=== PATIENT | female | born 1960 | race Two or more races ===

== ENCOUNTER 2023-11-25 14:42 | Emergency (ER) | payer OTHER ==
[~2023-11-25] VITALS: Ht 147.3 cm; Wt 59.0 kg
[~2023-11-25 14:42] MED LIST: AMBIEN10 MG; ASA81 MG PO; BUSPAR15 MG PO; DURICEF500 MG PO; FIORICET TABLET1 TAB; FLEXERIL10 MG; LYRICA200 MG PO; NORVASC10 MG; NORVASC5 MG PO; PRILOSEC; SOMA; TORADOL60 MG/2 ML; TRICOR145 MG; ZANTAC; ZOLOFT50 MG PO
[2023-11-25] MEDS ORDERED: LIPITOR20 MG PO (14:50)
[2023-11-25] MEDS ORDERED: CLONAZEPAM0.125 MG (14:51)
[2023-11-25] MEDS ORDERED: METOCLOPRAMIDE HCL 5 MG/5 ML BLIST.PACK PO STA (16:20)
[2023-11-25] MEDS ORDERED: ONDANSETRON HCL 2 MG/ML VIAL IV STA (16:26)
[2023-11-25] MEDS ORDERED: FAMOtidine 10 MG/ML (4ML VIAL) IV PUSH STA (16:26)
[2023-11-25] MEDS ORDERED: HYOSCYAMINE SULFATE 0.125 MG TAB.SUBL SL ONE (16:30)
[2023-11-25] MEDS ORDERED: METOCLOPRAMIDE HCL 5 MG/ML VIAL IM ONE (16:45)
== END 2023-11-25 19:00 | disposition home or self-care (01) ==
LOC: ER 14:42
DX: K29.70 Gastritis, unspecified, without bleeding (principal); Z88.8 Allergy status to other drugs, medicaments and biological substances; E11.9 Type 2 diabetes mellitus without complications
CPT/HCPCS: 96365; 96372; 99282; J2405; J2765; J3490

== ENCOUNTER 2025-07-30 20:31 | Inpatient (IN) | payer OTHER ==
[~2025-07-30] VITALS: Ht 121.9 cm; Wt 56.7 kg
[~2025-07-30 20:31] MED LIST changes: +CLONAZEPAM0.125 MG; +LIPITOR20 MG PO
[2025-07-30] MEDS ORDERED: JARDIANCE10 MG PO (21:18)
[2025-07-30] MEDS ORDERED: IPRATROPIUM BROMIDE 0.5 MG/2.5 ML AMPUL.NEB IH ONE (21:41)
[2025-07-30] MEDS ORDERED: CEFTRIAXONE SODIUM 1,000 MG VIAL ONE (21:58)
[2025-07-30] MEDS ORDERED: FAMOTIDINE/PF 20 MG/2 ML VIAL ONE (21:58)
[2025-07-30] MEDS ORDERED: METHYLPREDNISOLONE SOD SUCC 40 MG VIAL ONE (21:58)
[2025-07-30] MEDS ORDERED: CEFTRIAXONE SODIUM 1,000 MG VIAL IV ONE (22:00)
[2025-07-30] MEDS ORDERED: INSULIN REGULAR, HUMAN 1,000 UNIT/10 ML UNITS SUBCUTANEO ONE ×2 (22:00→23:30)
[2025-07-30] MEDS ORDERED: IPRATROPIUM BROMIDE 0.5 MG/2.5 ML AMPUL.NEB IH SCH (22:00)
[2025-07-30] MEDS ORDERED: MAGNESIUM SULFATE IN WATER 2 GM/50 ML PIGGYBAG IV ONE (22:00)
[2025-07-30] MEDS ORDERED: FAMOTIDINE/PF 20 MG/2 ML VIAL IV ONE (22:00)
[2025-07-30] MEDS ORDERED: METHYLPREDNISOLONE SOD SUCC 40 MG VIAL IV ONE (22:00)
[2025-07-30 22:04] LABS: BASO % 0.5 % (0.1-1.2); EOS # 0.04 (0.04-0.54); EOS % 0.3 % (0.7-7.0); LYMPH # 0.68 (1.18-3.74); LYMPH % 5.9 % (19.3-53.1); MEAN PLATELET VOLUME 11.60 fl (9.4-12.4); MONO # 0.22 (0.24-0.82); MONO % 1.9 % (4.7-12.5); NEUT # 10.19 (1.56-6.13); NEUT % 88.9 % (34.0-71.1); RED CELL DISTRIBUTION WIDTH 13.6 % (11.6-14.4)
[2025-07-30 22:28] LABS: COVID-19 AG NEGATIVE (NEGATIVE)
[2025-07-30 22:39] LABS: ALT/SGPT 19 U/L (12-78); AST/SGOT 21 U/L (15-37); BILIRUBIN TOTAL 0.63 mg/dL (0.3-1.2); BUN CREA RATIO 15 (7.0-25.0); CKMB < 1.0 NG/ML (0.5-3.6); CREATININE SERUM 1.02 mg/dL (0.55-1.02); GFR 54.73; GLOBULINA 4.0 G/DL (2.4-3.5); OSMOLALITY SERUM 299 MOSM/KG (275-295)
[2025-07-30 22:40] LABS: GLUCOSE FASTING 464 mg/dL (65-100)
[2025-07-30] MEDS ORDERED: ENOXAPARIN SODIUM 60 MG/0.6 ML SYRINGE SUBCUTANEO ONE ×2 (23:27→23:30)
[2025-07-30] MEDS ORDERED: LEVALBUTEROL HCL 1.25 MG/3 ML SOLUTION IH SCH (23:30)
[2025-07-30] MEDS ORDERED: LEVALBUTEROL HCL 1.25 MG/3 ML SOLUTION IH ONE (23:35)
[2025-07-31] MEDS ORDERED: LEVALBUTEROL HCL 1.25 MG/3 ML SOLUTION IH SCH (02:52)
[2025-07-31] MEDS ORDERED: IPRATROPIUM BROMIDE 0.5 MG/2.5 ML AMPUL.NEB IH SCH (02:52)
[2025-07-31] MEDS ORDERED: IPRATROPIUM BROMIDE 0.5 MG/2.5 ML AMPUL.NEB IH ONE (07:42)
[2025-07-31] MEDS ORDERED: LEVALBUTEROL HCL 1.25 MG/3 ML SOLUTION IH ONE (07:42)
[2025-07-31] MEDS ORDERED: ENOXAPARIN SODIUM 40 MG/0.4 ML SYRINGE SUBCUTANEO SCH (13:54)
[2025-07-31] MEDS ORDERED: CEFTRIAXONE SODIUM 2,000 MG in 0.9 % SODIUM CHLORIDE 100 ML IV SCH (13:55)
[2025-07-31] MEDS ORDERED: BUSPIRONE HCL 5 MG TABLET PO SCH (13:57)
[2025-07-31] MEDS ORDERED: AMLODIPINE BESYLATE 10 MG TABLET PO SCH (13:57)
[2025-07-31] MEDS ORDERED: FAMOTIDINE/PF 20 MG in 0.9 % SODIUM CHLORIDE 8 ML IV PUSH SCH (13:58)
[2025-07-31] MEDS ORDERED: INSULIN LISPRO 1,000 UNIT/10 ML UNITS SUBCUTANEO PRN (14:00)
[2025-07-31] MEDS ORDERED: DEXTROSE 50 % IN WATER 0.5 G/ML DISP.SYRIN IV PRN (14:00)
[2025-07-31] MEDS ORDERED: METHYLPREDNISOLONE SOD SUCC 40 MG VIAL IV SCH (14:11)
[2025-07-31] MEDS ORDERED: SERTRALINE HCL 100 MG TABLET PO SCH (17:00)
[2025-07-31 17:59] LABS: INR 1.05
[2025-07-31 18:01] VITALS: BP 129/55; O2SAT 97
[2025-07-31 18:08] LABS: ALT/SGPT 16.0 U/L (12-78); AST/SGOT 23.0 U/L (15-37); BILIRUBIN TOTAL 0.48 mg/dL (0.3-1.2); BILIRUBIN,CONJUGATED 0.14 mg/dL (0.0-0.2)
[2025-07-31 19:22] LABS: URINE APPEARANCE Clear; URINE BILIRRUBIN Negative (NEGATIVE); URINE BLOOD Trace; URINE COLOR Yellow; URINE KETONE Negative (NEGATIVE); URINE LEUKOCYTE Negative; URINE NITRATE Negative; URINE PROTEIN Trace (NEGATIVE); URINE UROBILINOGEN 0.2 E.U./dl
[2025-07-31 19:26] LABS: URINE BACTERIA 62.4 uL (0.0-1933); URINE EPITHELIAL CELLS 6.9 uL (0.0-38.8); URINE RBC 7.9 uL (0.0-20.8); URINE WBC 16.7 uL (0.0-23.2)
[2025-07-31 19:28] VITALS: BP 144/66; O2SAT 94
[2025-07-31 19:30] LABS: URINE CAST 0.14 uL (0.0-1.40); URINE GLUCOSE >=1000 MG/DL (NEGATIVE)
[2025-07-31 20:48] VITALS: O2SAT 94
[2025-07-31 22:40] VITALS: BP 155/85; O2SAT 95
[2025-08-01] VITALS (9 sets, daily range): BP systolic 120–147; BP diastolic 61–78; O2SAT 90–99
[2025-08-01] MEDS ORDERED: LACTOBACILLUS ACIDOPHILUS 1 CAP CAP PO SCH (09:00)
[2025-08-01] MEDS ORDERED: MEROPENEM 500 MG/VIAL VIAL IV STA (11:51)
[2025-08-01] MEDS ORDERED: LINEZOLID IN DEXTROSE 5% 600 MG/300 ML PIGGYBAG IV STA (11:51)
[2025-08-01] MEDS ORDERED: AZITHROMYCIN 500 MG VIAL IV STA (11:52)
[2025-08-01] MEDS ORDERED: LORATADINE 10 MG TABLET PO SCH (12:00)
[2025-08-01] MEDS ORDERED: IPRATROPIUM/ALBUTEROL SULFATE 3 ML AMPUL.NEB IH SCH (13:00)
[2025-08-01] MEDS ORDERED: METHYLPREDNISOLONE SOD SUCC 40 MG VIAL IV SCH (13:00)
[2025-08-01] MEDS ORDERED: CEFTRIAXONE SODIUM 2,000 MG in 0.9 % SODIUM CHLORIDE 100 ML IV SCH (17:00)
[2025-08-01] MEDS ORDERED: MEROPENEM 500 MG/VIAL VIAL IV SCH (18:00)
[2025-08-01] MEDS ORDERED: LINEZOLID IN DEXTROSE 5% 600 MG/300 ML PIGGYBAG IV SCH (21:00)
[2025-08-02] VITALS (10 sets, daily range): BP systolic 90–142; BP diastolic 49–79; O2SAT 87–93
[2025-08-02] MEDS ORDERED: AZITHROMYCIN 500 MG VIAL IV SCH (09:00)
[2025-08-03] VITALS (8 sets, daily range): BP systolic 115–132; BP diastolic 65–76; O2SAT 87–97
[2025-08-03 18:56] LABS: BASO % 0.5 % (0.1-1.2); EOS # 0.00 (0.04-0.54); EOS % 0.0 % (0.7-7.0); LYMPH # 1.08 (1.18-3.74); LYMPH % 7.4 % (19.3-53.1); MEAN PLATELET VOLUME 12.00 fl (9.4-12.4); MONO # 0.60 (0.24-0.82); MONO % 4.1 % (4.7-12.5); NEUT # 12.18 (1.56-6.13); RED CELL DISTRIBUTION WIDTH 13.5 % (11.6-14.4)
[2025-08-03 19:34] LABS: BUN CREA RATIO 30.0 (7.0-25.0); CREATININE SERUM 0.69 mg/dL (0.55-1.02); GFR 85.93; GLUCOSE FASTING 190.0 mg/dL (65-100); OSMOLALITY SERUM 291.0 MOSM/KG (275-295)
[2025-08-03 19:39] LABS: BAND MAN 1.0 %; LYMPHOCYTE MAN 11.0 %; MONOCYTE MAN 3.0 %; NEUT % 83.4 % (34.0-71.1); NEUTROPHILS MAN 84.0 %
[2025-08-04] VITALS (9 sets, daily range): BP systolic 124–128; BP diastolic 69–70; O2SAT 89–95
[2025-08-04] MEDS ORDERED: METHYLPREDNISOLONE SOD SUCC 40 MG VIAL IV SCH (13:00)
[2025-08-04] MEDS ORDERED: LINEZOLID 600 MG TABLET PO SCH (21:00)
[2025-08-05] VITALS (8 sets, daily range): BP systolic 116–145; BP diastolic 60–74; O2SAT 90–96
[2025-08-06] VITALS (9 sets, daily range): BP systolic 123–151; BP diastolic 71–82; O2SAT 88–97
[2025-08-06] MEDS ORDERED: AZITHROMYCIN 500 MG VIAL IV ONE (09:14)
[2025-08-07] VITALS (7 sets, daily range): BP systolic 114–150; BP diastolic 68–76; O2SAT 90–98
[2025-08-08 03:28] VITALS: BP 132/75; O2SAT 96
[2025-08-08 09:17] VITALS: BP 150/79; O2SAT 96
[2025-08-08 18:19] VITALS: BP 130/80; O2SAT 97
[2025-08-09 03:54] VITALS: BP 134/71; O2SAT 100
[2025-08-09 10:00] VITALS: BP 145/85; O2SAT 97
== END 2025-08-09 13:12 | disposition home or self-care (01) | DRG 194 ==
LOC: ER 20:31 → SEC-K 07-31 17:13 → MEDJ 07-31 17:13
PROVIDERS: General Practice; Internal Medicine; ADMIT Internal Medicine; ATTEND Internal Medicine
PROC: BB24YZZ Computerized Tomography (CT Scan) of Bilateral Lungs using Other Contrast (ICD-10-PCS; principal; 2025-07-30)
PROC: 3E0F7GC Introduction of Other Therapeutic Substance into Respiratory Tract, Via Natural or Artificial Opening (ICD-10-PCS; 2025-07-31)
PROC: 4A12X4Z Monitoring of Cardiac Electrical Activity, External Approach (ICD-10-PCS; 2025-07-31)
PROC: 3E0F7SF Introduction of Other Gas into Respiratory Tract, Via Natural or Artificial Opening (ICD-10-PCS; 2025-07-31)
DX: J18.9 Pneumonia, unspecified organism (principal); J44.1 Chronic obstructive pulmonary disease with (acute) exacerbation; J84.112 Idiopathic pulmonary fibrosis; J47.9 Bronchiectasis, uncomplicated; J84.89 Other specified interstitial pulmonary diseases; R06.03 Acute respiratory distress; E11.65 Type 2 diabetes mellitus with hyperglycemia; I10 Essential (primary) hypertension; Z99.81 Dependence on supplemental oxygen; Z79.84 Long term (current) use of oral hypoglycemic drugs; Z87.891 Personal history of nicotine dependence; Z88.1 Allergy status to other antibiotic agents

== ENCOUNTER 2025-08-18 00:33 | Inpatient (IN) | payer OTHER ==
[~2025-08-18] VITALS: Ht 121.9 cm; Wt 55.3 kg
[~2025-08-18 00:33] MED LIST changes: +JARDIANCE10 MG PO
[2025-08-18] MEDS ORDERED: BACLOFEN20 MG PO (00:41)
[2025-08-18] MEDS ORDERED: NEURONTIN800 MG PO (00:41)
[2025-08-18] MEDS ORDERED: PAMELOR10 M1 PO (00:42)
--- NOTE | 2025-08-18 00:49 | NUR ---
SE RECIBE PTE ALERTA Y ORIENTADA X3 EN SILLA DE EUGENE CON QUEJA PRINCIPAL DE DIFICULTAD PARA RESPIRAR Y SENTIRSE ASFIXIADA. NOTIFICA PADECER DE FIBROSIS PULMONAR Y SER DEPENDIENTE DE OXIGENO EN JOHNSON HOGAR (3 LT/MIN). SE OBSERVA PTE RESPIRANDO PROFUNDAMENTE, HABLANDO EN FRASES CORTAS. SE MIDEN SV Y SATURA 50% AL MOMENTO DE TRIAGE. SE UBICA PTE EN AREA DE CRITICO.
[2025-08-18] MEDS ORDERED: CEFAZOLIN SODIUM 1,000 MG VIAL IV STA (00:55)
[2025-08-18] MEDS ORDERED: METHYLPREDNISOLONE SOD SUCC 125 MG VIAL IV STA (00:55)
[2025-08-18] MEDS ORDERED: METHYLPREDNISOLONE SOD SUCC 125 MG VIAL ONE (00:58)
[2025-08-18] MEDS ORDERED: CEFAZOLIN SODIUM 1,000 MG VIAL ONE (00:58)
[2025-08-18] MEDS ORDERED: IPRATROPIUM BROMIDE 0.5 MG/2.5 ML AMPUL.NEB IH STA (01:02)
[2025-08-18] MEDS ORDERED: ALBUTEROL SULFATE 3 ML/2.5 MG AMPUL.NEB IH ONE ×2 (01:15→07:46)
[2025-08-18] MEDS ORDERED: IPRATROPIUM BROMIDE 0.5 MG/2.5 ML AMPUL.NEB IH ONE ×3 (01:15→12:16)
[2025-08-18] MEDS ORDERED: ALBUTEROL SULFATE 3 ML/2.5 MG AMPUL.NEB IH SCH ×3 (01:15→06:27)
[2025-08-18] MEDS ORDERED: FAMOtidine 10 MG/ML (4ML VIAL) IV PUSH STA (01:25)
[2025-08-18] MEDS ORDERED: INSULIN REGULAR, HUMAN 1,000 UNIT/10 ML UNITS SUBCUTANEO STA (01:28)
[2025-08-18 01:43] LABS: BASO % 0.4 % (0.1-1.2); EOS # 0.02 (0.04-0.54); EOS % 0.2 % (0.7-7.0); LYMPH # 0.63 (1.18-3.74); LYMPH % 6.2 % (19.3-53.1); MEAN PLATELET VOLUME 12.40 fl (9.4-12.4); MONO # 0.19 (0.24-0.82); MONO % 1.9 % (4.7-12.5); NEUT # 8.97 (1.56-6.13); NEUT % 88.5 % (34.0-71.1); RED CELL DISTRIBUTION WIDTH 14.8 % (11.6-14.4)
[2025-08-18] MEDS ORDERED: FAMOTIDINE/PF 20 MG/2 ML VIAL ONE ×2 (01:47→14:06)
[2025-08-18 01:54] LABS: COVID-19 AG NEGATIVE (NEGATIVE)
[2025-08-18 02:04] LABS: BUN CREA RATIO 13.0 (7.0-25.0); CREATININE SERUM 0.97 mg/dL (0.55-1.02); GFR 58.0; OSMOLALITY SERUM 299.0 MOSM/KG (275-295)
[2025-08-18 02:09] LABS: GLUCOSE FASTING 511.0 mg/dL (65-100)
--- NOTE | 2025-08-18 02:09 | NUR ---
SE CONECTA PACIENTE A MONITOR CARDIACO Y OXIMETRIA DE PULSO. SE CANALIZA EN BRAZO NEGIN Y MANO IZQUIERDA # 18 SE COLOCA IVFS Y SE ADMINISTRA MEDICAMENTOS TABITHA ORDEN MEDICA. SE KRISTOPHER MUESTRAS DE LABORATORIOS ORDENADAS. SE NOTIFICAN TERAPIAS Y ABGS A PERSONAL DE TERAPIA RESPIRAROIO. SE REALIZA EKG. PENDIENTE A PLACA Y CT SCAN
[2025-08-18] MEDS ORDERED: INSULIN REGULAR, HUMAN 1,000 UNIT/10 ML UNITS IV ONE ×2 (02:15→03:30)
[2025-08-18] MEDS ORDERED: 0.9 % SODIUM CHLORIDE 1,000 ML IV ONE (02:15)
[2025-08-18 03:19] LABS: D DIMER 0.62 MG/L; INR 1.04
--- NOTE | 2025-08-18 04:33 | NUR ---
DR. JACQUES AUTORIZA COLOCA PACIENTE EN K-7 CON MONITOR CARDIACO Y OXIMETRIA DE PULSO. AL MOMENTO DE TRASLADAR PACIENTE LA MISMA SIN FATIGA Y HABLANDO EN ORACIONES COMPLETAS CON VENTURY MASK 50% CON SPO2 90-91%. SE ENTREGA PENDIENTE A U/A Y RODRIGO DE DXT A LAS 5AM.
[2025-08-18] MEDS ORDERED: IPRATROPIUM BROMIDE 0.5 MG/2.5 ML AMPUL.NEB IH SCH (06:27)
--- NOTE | 2025-08-18 07:26 | NUR ---
SE RECIBE PACIENTE FEMINA DE 65 ANOS DE EDAD ALERTA Y ORIENTADA X3, CUBICULO K7 EN CAMA CON BARANDAS ELEVADAS Y EN JOHNSON NIVEL MAS BAJO Y CONECTADA A MONITOR CARIDACO Y OXIMETRIA DE PULSO CONTINUA. SE OBSERVA PACIENTE CON BUEN PATRON RESPIRATORIO ASISTIDO POR VENTURY MASK AL 50%, PACIENTE CON EXTREMIDADES SUPERIORES PRESENTES, LIBRES DE EDEMA Y PREVIAMENTE CANALIZADA X2 EN BRAZO NEGIN, LOS CUALES SE ENCUENTRAN PATENTES, LIBRES DE EDEMA Y RECIBIENDO 0.9%NSS BAJANDO A 85ML/HR. PACIENTE CON EXTREMIDADES INFERIORES PRESENTES, LIBRES DE EDEMA. SE LE ORIENTA A PACIENTE SOBRE CONTINUDIAD DE TRATAMIENTO Y REFIERE ENTENDER, PENDIENTE CONSULTA CON DR MACKENZIE.
[2025-08-18] MEDS ORDERED: LEVALBUTEROL HCL 1.25 MG/3 ML SOLUTION IH ONE (12:15)
[2025-08-18] MEDS ORDERED: CEFTRIAXONE SODIUM 2,000 MG in 0.9 % SODIUM CHLORIDE 100 ML IV SCH (13:19)
[2025-08-18] MEDS ORDERED: AZITHROMYCIN 500 MG VIAL IV SCH (13:19)
[2025-08-18] MEDS ORDERED: IPRATROPIUM/ALBUTEROL SULFATE 3 ML AMPUL.NEB IH SCH (13:20)
[2025-08-18] MEDS ORDERED: METHYLPREDNISOLONE SOD SUCC 40 MG VIAL IV SCH (13:20)
[2025-08-18] MEDS ORDERED: ENOXAPARIN SODIUM 40 MG/0.4 ML SYRINGE SUBCUTANEO SCH (13:21)
[2025-08-18] MEDS ORDERED: FAMOTIDINE/PF 20 MG in 0.9 % SODIUM CHLORIDE 8 ML IV PUSH SCH (13:24)
[2025-08-18] MEDS ORDERED: DEXTROSE 50 % IN WATER 0.5 G/ML DISP.SYRIN IV PRN (13:30)
[2025-08-18] MEDS ORDERED: 0.9 % SODIUM CHLORIDE 1,000 ML IV SCH (13:30)
[2025-08-18] MEDS ORDERED: INSULIN LISPRO 1,000 UNIT/10 ML UNITS SUBCUTANEO PRN (13:30)
[2025-08-18] MEDS ORDERED: BUSPIRONE HCL 5 MG TABLET PO SCH (13:54)
[2025-08-18] MEDS ORDERED: AMLODIPINE BESYLATE 10 MG TABLET PO SCH (13:54)
[2025-08-18] MEDS ORDERED: METHYLPREDNISOLONE SOD SUCC 40 MG VIAL ONE (14:05)
[2025-08-18] MEDS ORDERED: ENOXAPARIN SODIUM 40 MG/0.4 ML SYRINGE SUBCUTANEO ONE (14:06)
[2025-08-18] MEDS ORDERED: AZITHROMYCIN 500 MG VIAL IV ONE (14:06)
[2025-08-18] MEDS ORDERED: CEFTRIAXONE SODIUM 2,000 MG VIAL ONE (14:06)
[2025-08-18] MEDS ORDERED: INSULIN LISPRO 1,000 UNIT/10 ML UNITS SUBCUTANEO ONE (15:18)
[2025-08-18 15:29] VITALS: BP 130/80
[2025-08-18 15:37] LABS: URINE APPEARANCE Clear; URINE BILIRRUBIN Negative (NEGATIVE); URINE BLOOD Trace; URINE COLOR Yellow; URINE KETONE Negative (NEGATIVE); URINE LEUKOCYTE Negative; URINE NITRATE Negative; URINE PROTEIN Negative (NEGATIVE); URINE UROBILINOGEN 0.2 E.U./dl
[2025-08-18 15:41] LABS: URINE BACTERIA 5.9 uL (0.0-1933); URINE EPITHELIAL CELLS 2.9 uL (0.0-38.8); URINE RBC 3.6 uL (0.0-20.8); URINE WBC 3.9 uL (0.0-23.2)
[2025-08-18 16:15] LABS: URINE CAST 0.29 uL (0.0-1.40); URINE GLUCOSE >=1000 MG/DL (NEGATIVE)
[2025-08-18] MEDS ORDERED: SERTRALINE HCL 100 MG TABLET PO SCH (17:00)
[2025-08-18 17:32] VITALS: O2SAT 76
[2025-08-18] MEDS ORDERED: PANTOPRAZOLE SODIUM 40 MG/VIAL VIAL IV SCH (20:36)
[2025-08-18] MEDS ORDERED: METHYLPREDNISOLONE SOD SUCC 40 MG VIAL IV STA (20:37)
[2025-08-18 21:55] VITALS: O2SAT 74
[2025-08-18 21:56] VITALS: BP 129/64; O2SAT 70
[2025-08-19] VITALS (9 sets, daily range): BP systolic 110–140; BP diastolic 67–79; O2SAT 90–98
[2025-08-19] MEDS ORDERED: METHYLPREDNISOLONE SOD SUCC 40 MG VIAL IV SCH (01:00)
[2025-08-19] MEDS ORDERED: MEROPENEM 500 MG/VIAL VIAL IV STA (09:24)
[2025-08-19] MEDS ORDERED: BUDESONIDE 0.5 MG/2 ML AMPUL.NEB IH NR (10:30)
[2025-08-19] MEDS ORDERED: MEROPENEM 500 MG/VIAL VIAL IV SCH (14:00)
[2025-08-19] MEDS ORDERED: LACTOBACILLUS ACIDOPHILUS 1 CAP CAP PO SCH (17:00)
[2025-08-19] MEDS ORDERED: BUSPIRONE HCL 5 MG TABLET PO SCH (17:00)
[2025-08-19] MEDS ORDERED: BUDESONIDE 0.5 MG/2 ML AMPUL.NEB IH SCH (21:00)
[2025-08-19] MEDS ORDERED: PROPOFOL 10,000 MCG/ML VIAL ONE (23:20)
[2025-08-19] MEDS ORDERED: PROPOFOL 10,000 MCG/ML VIAL IV ONE (23:39)
[2025-08-20] VITALS (14 sets, daily range): BP systolic 88–119; BP diastolic 49–63; O2SAT 96–100
[2025-08-20] MEDS ORDERED: PROPOFOL 10,000 MCG/ML VIAL IV PUSH STA (00:06)
[2025-08-20] MEDS ORDERED: PROPOFOL 100 ML IV SCH (00:15)
[2025-08-20] MEDS ORDERED: MIDAZOLAM HCL 50 MG in 0.9 % SODIUM CHLORIDE 50 ML IV SCH (00:45)
[2025-08-20] MEDS ORDERED: CHLORHEXIDINE GLUCONATE 15ML BRUSH KIT MM SCH (01:00)
[2025-08-20] MEDS ORDERED: LINEZOLID IN DEXTROSE 5% 600 MG/300 ML PIGGYBAG IV STA (09:07)
[2025-08-20] MEDS ORDERED: AMPICILLIN SODIUM/SULBACTAM NA 3,000 MG VIAL IV STA (09:44)
[2025-08-20 10:44] LABS: BASO % 0.2 % (0.1-1.2); EOS # 0.06 (0.04-0.54); EOS % 0.5 % (0.7-7.0); LYMPH # 0.92 (1.18-3.74); LYMPH % 7.2 % (19.3-53.1); MEAN PLATELET VOLUME 12.30 fl (9.4-12.4); MONO # 0.41 (0.24-0.82); MONO % 3.2 % (4.7-12.5); NEUT # 11.27 (1.56-6.13); NEUT % 88.0 % (34.0-71.1); RED CELL DISTRIBUTION WIDTH 15.3 % (11.6-14.4)
[2025-08-20 12:07] LABS: ALT/SGPT 26.0 U/L (12-78); AST/SGOT 42.0 U/L (15-37); BILIRUBIN TOTAL 0.77 mg/dL (0.3-1.2); BUN CREA RATIO 27.0 (7.0-25.0); CREATININE SERUM 0.59 mg/dL (0.55-1.02); GFR 102.94; GLOBULINA 3.0 G/DL (2.4-3.5); GLUCOSE FASTING 152.0 mg/dL (65-100); OSMOLALITY SERUM 287.0 MOSM/KG (275-295)
[2025-08-20] MEDS ORDERED: NOREPINEPHRINE BITARTRATE 4 MG in DEXTROSE 5 % IN WATER 250 ML IV SCH (12:15)
[2025-08-20] MEDS ORDERED: CEFTOLOZANE/TAZOBACTAM 1.5 GM VIAL IV SCH (13:00)
[2025-08-20] MEDS ORDERED: AMPICILLIN SODIUM/SULBACTAM NA 3,000 MG VIAL IV SCH (18:00)
[2025-08-20] MEDS ORDERED: LINEZOLID IN DEXTROSE 5% 600 MG/300 ML PIGGYBAG IV SCH (21:00)
[2025-08-21] VITALS (18 sets, daily range): BP systolic 93–116; BP diastolic 50–67; O2SAT 92–100
[2025-08-21] MEDS ORDERED: MIDAZOLAM HCL 100 MG in 0.9 % SODIUM CHLORIDE 100 ML IV SCH (00:45)
[2025-08-21] MEDS ORDERED: POLYVINYL ALCOHOL 15 ML DROPS OP SCH (09:00)
[2025-08-21] MEDS ORDERED: FLUCONAZOLE IN NACL,ISO-OSM 200 MG/100 ML PIGGYBAG IV STA (10:48)
[2025-08-22] VITALS (12 sets, daily range): BP systolic 91–113; BP diastolic 43–67; O2SAT 91–98
[2025-08-22 06:10] LABS: BASO % 0.4 % (0.1-1.2); EOS # 0.56 (0.04-0.54); EOS % 5.4 % (0.7-7.0); LYMPH # 0.87 (1.18-3.74); LYMPH % 8.4 % (19.3-53.1); MEAN PLATELET VOLUME 12.20 fl (9.4-12.4); MONO # 0.26 (0.24-0.82); MONO % 2.5 % (4.7-12.5); NEUT # 8.46 (1.56-6.13); NEUT % 81.8 % (34.0-71.1); RED CELL DISTRIBUTION WIDTH 15.3 % (11.6-14.4)
[2025-08-22 06:46] LABS: BUN CREA RATIO 15.0 (7.0-25.0); CREATININE SERUM 0.46 mg/dL (0.55-1.02); GFR 137.2; GLUCOSE FASTING 153.0 mg/dL (65-100); OSMOLALITY SERUM 293.0 MOSM/KG (275-295)
[2025-08-22] MEDS ORDERED: FLUCONAZOLE IN NACL,ISO-OSM 200 MG/100 ML PIGGYBAG IV SCH (09:00)
[2025-08-22] MEDS ORDERED: METHYLPREDNISOLONE SOD SUCC 40 MG VIAL IV SCH (09:00)
[2025-08-22] MEDS ORDERED: POTASSIUM CHLORIDE IN WATER 100 ML IV NR (14:30)
[2025-08-23] VITALS (14 sets, daily range): BP systolic 91–106; BP diastolic 52–59; O2SAT 89–96
[2025-08-23] MEDS ORDERED: POTASSIUM CHLORIDE IN WATER 40 MEQ/100 ML PIGGYBAG IV SCH (20:00)
[2025-08-24] VITALS (11 sets, daily range): BP systolic 102–119; BP diastolic 53–65; O2SAT 93–105
[2025-08-25] VITALS (15 sets, daily range): BP systolic 118–148; BP diastolic 56–71; O2SAT 87–100
[2025-08-25 09:59] LABS: BASO % 0.3 % (0.1-1.2); EOS # 0.00 (0.04-0.54); EOS % 0.0 % (0.7-7.0); LYMPH # 0.46 (1.18-3.74); LYMPH % 4.1 % (19.3-53.1); MEAN PLATELET VOLUME 10.90 fl (9.4-12.4); MONO # 0.73 (0.24-0.82); MONO % 6.5 % (4.7-12.5); NEUT # 9.28 (1.56-6.13); NEUT % 82.1 % (34.0-71.1); RED CELL DISTRIBUTION WIDTH 16.0 % (11.6-14.4)
[2025-08-25 10:28] LABS: BUN CREA RATIO 45.0 (7.0-25.0); CREATININE SERUM 0.53 mg/dL (0.55-1.02); GFR 116.51
[2025-08-25 10:45] LABS: GLUCOSE FASTING 270.0 mg/dL (65-100); OSMOLALITY SERUM 325.0 MOSM/KG (275-295)
[2025-08-25 11:17] LABS: BAND MAN 14.0 %; LYMPHOCYTE MAN 13.0 %; MONOCYTE MAN 2.0 %; NEUTROPHILS MAN 71.0 %
[2025-08-25] MEDS ORDERED: LACTOBACILLUS ACIDOPHILUS 1 CAP CAP PO SCH (13:00)
[2025-08-25] MEDS ORDERED: ACETAMINOPHEN 500 MG GEL..CAP PO PRN (14:00)
[2025-08-26] VITALS (12 sets, daily range): BP systolic 116–149; BP diastolic 62–76; O2SAT 87–97
[2025-08-26] MEDS ORDERED: DEXTROSE 5 % IN WATER 1,000 ML IV SCH (08:30)
[2025-08-26 09:35] LABS: BASO % 0.3 % (0.1-1.2); EOS # 0.00 (0.04-0.54); EOS % 0.0 % (0.7-7.0); LYMPH # 0.73 (1.18-3.74); LYMPH % 5.3 % (19.3-53.1); MEAN PLATELET VOLUME 11.70 fl (9.4-12.4); MONO # 0.70 (0.24-0.82); MONO % 5.0 % (4.7-12.5); NEUT # 11.65 (1.56-6.13); NEUT % 84.0 % (34.0-71.1); RED CELL DISTRIBUTION WIDTH 16.3 % (11.6-14.4)
[2025-08-26 09:50] LABS: URINE APPEARANCE Clear; URINE BILIRRUBIN Negative (NEGATIVE); URINE COLOR Yellow; URINE KETONE Negative (NEGATIVE); URINE LEUKOCYTE Negative; URINE NITRATE Negative; URINE PROTEIN Trace (NEGATIVE); URINE UROBILINOGEN 0.2 E.U./dl
[2025-08-26 09:56] LABS: URINE BACTERIA 4.7 uL (0.0-1933); URINE EPITHELIAL CELLS 1.9 uL (0.0-38.8); URINE RBC 35.7 uL (0.0-20.8)
[2025-08-26 10:03] LABS: URINE BLOOD TRACE; URINE CAST 0.58 uL (0.0-1.40); URINE GLUCOSE >=1000 MG/DL (NEGATIVE); URINE WBC 1.3 uL (0.0-23.2)
[2025-08-26 10:13] LABS: BAND MAN 9.0 %; EOSINOPHIL MAN 1.0 %; LYMPHOCYTE MAN 7.0 %; METAMYELOCYTE 1.0 %; MONOCYTE MAN 1.0 %; NEUTROPHILS MAN 81.0 %
[2025-08-26] MEDS ORDERED: LOPERAMIDE HCL 4 MG/30 ML LIQUID PO SCH (10:58)
[2025-08-26 11:06] LABS: ALT/SGPT 15.0 U/L (12-78); AST/SGOT 14.0 U/L (15-37); BILIRUBIN TOTAL 0.29 mg/dL (0.3-1.2); BUN CREA RATIO 49.0 (7.0-25.0); CREATININE SERUM 0.49 mg/dL (0.55-1.02); GFR 127.55; GLOBULINA 3.2 G/DL (2.4-3.5)
[2025-08-26 11:07] LABS: OSMOLALITY SERUM 337.0 MOSM/KG (275-295)
[2025-08-26 11:10] LABS: GLUCOSE FASTING 293.0 mg/dL (65-100)
[2025-08-26] MEDS ORDERED: POTASSIUM PHOS,M-BASIC-D-BASIC 3 MM/ML VIAL IV SCH (14:00)
[2025-08-27] VITALS (13 sets, daily range): BP systolic 131–164; BP diastolic 67–79; O2SAT 83–100
[2025-08-27] MEDS ORDERED: METHYLPREDNISOLONE SOD SUCC 40 MG VIAL IV SCH (09:00)
[2025-08-27] MEDS ORDERED: INSULIN NPH HUMAN ISOPHANE 1,000 UNITS/10 ML UNITS SUBCUTANEO SCH ×2 (09:00→17:00)
[2025-08-27] MEDS ORDERED: AMIKACIN SULFATE 250 MG/ML - 1GM VIAL IV ONE (11:00)
[2025-08-27] MEDS ORDERED: DILTIAZEM HCL 30 MG TABLET PO SCH (13:00)
[2025-08-27 16:07] LABS: BUN CREA RATIO 47.0 (7.0-25.0); CREATININE SERUM 0.53 mg/dL (0.55-1.02); GFR 116.51
[2025-08-27 16:08] LABS: OSMOLALITY SERUM 327.0 MOSM/KG (275-295)
[2025-08-27 16:51] LABS: GLUCOSE FASTING 265.0 mg/dL (65-100)
[2025-08-27] MEDS ORDERED: CEFTOLOZANE/TAZOBACTAM 1.5 GM VIAL IV SCH (17:00)
[2025-08-28] VITALS (14 sets, daily range): BP systolic 119–156; BP diastolic 67–80; O2SAT 80–95
[2025-08-28] MEDS ORDERED: FLUCONAZOLE IN NACL,ISO-OSM 400 MG/200 ML PIGGYBAG IV SCH (09:00)
[2025-08-28] MEDS ORDERED: INSULIN NPH HUMAN ISOPHANE 1,000 UNITS/10 ML UNITS SUBCUTANEO SCH ×2 (09:00→17:00)
[2025-08-28 09:40] LABS: BASO % 0.1 % (0.1-1.2); EOS # 0.02 (0.04-0.54); EOS % 0.1 % (0.7-7.0); LYMPH # 1.57 (1.18-3.74); LYMPH % 6.7 % (19.3-53.1); MEAN PLATELET VOLUME 11.80 fl (9.4-12.4); MONO # 0.94 (0.24-0.82); MONO % 4.0 % (4.7-12.5); NEUT # 19.73 (1.56-6.13); NEUT % 84.0 % (34.0-71.1); RED CELL DISTRIBUTION WIDTH 16.2 % (11.6-14.4)
[2025-08-28 10:19] LABS: ALT/SGPT 16.0 U/L (12-78); AST/SGOT 19.0 U/L (15-37); BILIRUBIN TOTAL 0.39 mg/dL (0.3-1.2); BUN CREA RATIO 48.0 (7.0-25.0); CREATININE SERUM 0.42 mg/dL (0.55-1.02); GFR 152.38; GLOBULINA 3.1 G/DL (2.4-3.5)
[2025-08-28 10:23] LABS: GLUCOSE FASTING 228.0 mg/dL (65-100); OSMOLALITY SERUM 319.0 MOSM/KG (275-295)
[2025-08-28 11:03] LABS: BAND MAN 3.0 %; LYMPHOCYTE MAN 9.0 %; NEUTROPHILS MAN 87.0 %
[2025-08-28] MEDS ORDERED: POTASSIUM PHOS,M-BASIC-D-BASIC 3 MM/ML VIAL IV SCH (12:00)
[2025-08-28 22:01] LABS: FECAL LEUKOCYTES POSITIVE (NEGATIVE); ob NEGATIVE (NEGATIVE)
[2025-08-29] VITALS (13 sets, daily range): BP systolic 110–144; BP diastolic 56–76; O2SAT 85–93
[2025-08-29 06:33] LABS: BASO % 0.2 % (0.1-1.2); EOS # 0.01 (0.04-0.54); EOS % 0.0 % (0.7-7.0); LYMPH # 0.85 (1.18-3.74); LYMPH % 3.9 % (19.3-53.1); MEAN PLATELET VOLUME 12.20 fl (9.4-12.4); MONO # 0.51 (0.24-0.82); MONO % 2.3 % (4.7-12.5); NEUT # 19.41 (1.56-6.13); NEUT % 88.6 % (34.0-71.1); RED CELL DISTRIBUTION WIDTH 15.9 % (11.6-14.4)
[2025-08-29 07:03] LABS: ALT/SGPT 18.0 U/L (12-78); AST/SGOT 21.0 U/L (15-37); BILIRUBIN TOTAL 0.44 mg/dL (0.3-1.2); BUN CREA RATIO 70.0 (7.0-25.0); CREATININE SERUM 0.3 mg/dL (0.55-1.02); GFR 224.68; GLOBULINA 3.2 G/DL (2.4-3.5)
[2025-08-29 07:20] LABS: GLUCOSE FASTING 255.0 mg/dL (65-100); OSMOLALITY SERUM 312.0 MOSM/KG (275-295)
[2025-08-29 08:46] LABS: BAND MAN 12.0 %; LYMPHOCYTE MAN 4.0 %; NEUTROPHILS MAN 83.0 %
[2025-08-29] MEDS ORDERED: PANTOPRAZOLE SODIUM 40 MG in 0.9 % SODIUM CHLORIDE 8 ML IV PUSH NR (10:00)
[2025-08-29 12:08] LABS: CHOL HDL RATIO 5.0 (0-5.0); HDL 30.0 mg/dl (40-60); LDL 78.0 mg/dl (0-130); VLDL 42.0 (0-39)
[2025-08-29] MEDS ORDERED: AA 4.25%/CALCIUM/LYTES/DEX 10% 2,000 ML CENTRAL SCH (17:00)
[2025-08-29] MEDS ORDERED: AA 4.25%/CALCIUM/LYTES/DEX 10% 1,000 ML CENTRAL SCH (17:00)
[2025-08-29] MEDS ORDERED: AA 5 %/CALCIUM/LYTES/DEXT 20 % 2,000 ML CENTRAL SCH (17:00)
[2025-08-29] MEDS ORDERED: FAT EMULSIONS 250 ML IV SCH (21:00)
[2025-08-30] VITALS (12 sets, daily range): BP systolic 111–144; BP diastolic 56–69; O2SAT 83–93
[2025-08-30 07:47] LABS: BASO % 0.3 % (0.1-1.2); EOS # 0.00 (0.04-0.54); EOS % 0.0 % (0.7-7.0); LYMPH # 0.64 (1.18-3.74); LYMPH % 2.7 % (19.3-53.1); MEAN PLATELET VOLUME 13.20 fl (9.4-12.4); MONO # 0.63 (0.24-0.82); MONO % 2.7 % (4.7-12.5); NEUT # 20.93 (1.56-6.13); NEUT % 89.3 % (34.0-71.1); RED CELL DISTRIBUTION WIDTH 15.9 % (11.6-14.4)
[2025-08-30] MEDS ORDERED: PANTOPRAZOLE SODIUM 40 MG in 0.9 % SODIUM CHLORIDE 8 ML IV PUSH SCH (09:00)
[2025-08-30 09:12] LABS: BAND MAN 6.0 %; LYMPHOCYTE MAN 1.0 %; MONOCYTE MAN 1.0 %; NEUTROPHILS MAN 92.0 %
[2025-08-30] MEDS ORDERED: fentaNYL CITRATE 50 MCG/ML AMPUL IV PUSH STA (17:27)
[2025-08-30] MEDS ORDERED: FentaNYL CITRATE/PF 1,000 MCG in 0.9 % SODIUM CHLORIDE 100 ML IV SCH (17:30)
[2025-08-30] MEDS ORDERED: MIDAZOLAM HCL 2 MG/2 ML VIAL IV PUSH ONE (17:30)
[2025-08-30] MEDS ORDERED: VANCOMYCIN HCL 1,000 MG VIAL IV STA (20:43)
[2025-08-31] VITALS (17 sets, daily range): BP systolic 93–136; BP diastolic 46–65; O2SAT 76–100
[2025-08-31] MEDS ORDERED: PROPOFOL 100 ML IV SCH (00:15)
[2025-08-31 03:16] LABS: BASO % 0.2 % (0.1-1.2); EOS # 0.00 (0.04-0.54); EOS % 0.0 % (0.7-7.0); LYMPH # 0.48 (1.18-3.74); LYMPH % 1.7 % (19.3-53.1); MEAN PLATELET VOLUME 11.70 fl (9.4-12.4); MONO # 0.80 (0.24-0.82); MONO % 2.8 % (4.7-12.5); NEUT # 26.10 (1.56-6.13); NEUT % 90.7 % (34.0-71.1); RED CELL DISTRIBUTION WIDTH 16.2 % (11.6-14.4)
[2025-08-31] MEDS ORDERED: VANCOMYCIN HCL 1,000 MG VIAL IV SCH (05:00)
[2025-08-31] MEDS ORDERED: INSULIN NPH HUMAN ISOPHANE 1,000 UNITS/10 ML UNITS SUBCUTANEO STA (09:27)
[2025-08-31] MEDS ORDERED: NOREPINEPHRINE BITARTRATE 8 MG in DEXTROSE 5 % IN WATER 250 ML IV SCH (12:15)
[2025-08-31] MEDS ORDERED: INSULIN REGULAR, HUMAN 1,000 UNIT/10 ML UNITS IV STA (14:33)
[2025-08-31] MEDS ORDERED: SODIUM CHLORIDE 0.45 % 1,000 ML IV SCH (15:00)
[2025-08-31] MEDS ORDERED: SODIUM BICARBONATE 150 MEQ in DEXTROSE 5 % IN WATER 1,000 ML IV SCH (15:00)
[2025-08-31] MEDS ORDERED: INSULIN NPH HUMAN ISOPHANE 1,000 UNITS/10 ML UNITS SUBCUTANEO SCH (17:00)
[2025-08-31] MEDS ORDERED: INSULIN REGULAR, HUMAN 1,000 UNIT/10 ML UNITS IV NR (17:00)
[2025-08-31] MEDS ORDERED: SODIUM BICARBONATE 150 MEQ in SODIUM CHLORIDE 0.45 % 1,000 ML IV SCH (17:45)
[2025-08-31] MEDS ORDERED: INSULIN REGULAR, HUMAN 1,000 UNIT/10 ML UNITS IV ONE (19:30)
[2025-08-31] MEDS ORDERED: INSULIN LISPRO 1,000 UNIT/10 ML UNITS SUBCUTANEO ONE (19:30)
[2025-09-01] VITALS (25 sets, daily range): BP systolic 80–114; BP diastolic 40–76; O2SAT 63–77
[2025-09-01 06:44] LABS: BASO % 0.2 % (0.1-1.2); EOS # 0.00 (0.04-0.54); EOS % 0.0 % (0.7-7.0); LYMPH # 0.69 (1.18-3.74); LYMPH % 1.8 % (19.3-53.1); MEAN PLATELET VOLUME 11.90 fl (9.4-12.4); MONO # 1.40 (0.24-0.82); MONO % 3.7 % (4.7-12.5); NEUT # 33.32 (1.56-6.13); NEUT % 87.5 % (34.0-71.1); RED CELL DISTRIBUTION WIDTH 15.7 % (11.6-14.4)
[2025-09-01 08:15] LABS: BAND MAN 4.0 %; EOSINOPHIL MAN 1.0 %; LYMPHOCYTE MAN 2.0 %; MONOCYTE MAN 3.0 %; NEUTROPHILS MAN 88.0 %
[2025-09-01] MEDS ORDERED: INSULIN NPH HUMAN ISOPHANE 1,000 UNITS/10 ML UNITS SUBCUTANEO SCH ×2 (09:00→17:00)
[2025-09-01 09:16] LABS: BASO % 0.2 % (0.1-1.2); EOS # 0.00 (0.04-0.54); EOS % 0.0 % (0.7-7.0); LYMPH # 1.00 (1.18-3.74); LYMPH % 2.4 % (19.3-53.1); MEAN PLATELET VOLUME 12.40 fl (9.4-12.4); MONO # 1.63 (0.24-0.82); MONO % 4.0 % (4.7-12.5); NEUT # 35.41 (1.56-6.13); NEUT % 86.1 % (34.0-71.1); RED CELL DISTRIBUTION WIDTH 15.6 % (11.6-14.4)
[2025-09-01 09:47] LABS: INR 1.09
[2025-09-01 10:01] LABS: BAND MAN 17.0 %; LYMPHOCYTE MAN 1.0 %; MONOCYTE MAN 4.0 %; NEUTROPHILS MAN 77.0 %
[2025-09-01 10:49] LABS: CHOL HDL RATIO 6.0 (0-5.0); HDL 32.0 mg/dl (40-60); LDL 82.0 mg/dl (0-130); VLDL 78.0 (0-39)
[2025-09-01 11:03] LABS: BUN CREA RATIO 50.0 (7.0-25.0); CREATININE SERUM 1.06 mg/dL (0.55-1.02); GFR 52.36; GLUCOSE FASTING 274.0 mg/dL (65-100); OSMOLALITY SERUM 296.0 MOSM/KG (275-295)
[2025-09-01 11:04] LABS: BILIRUBIN TOTAL 1.05 mg/dL (0.3-1.2)
[2025-09-01 11:05] LABS: ALT/SGPT 96.0 U/L (12-78); AST/SGOT 128.0 U/L (15-37); BILIRUBIN,CONJUGATED 0.46 mg/dL (0.0-0.2)
[2025-09-01 11:07] LABS: UREA CLEARANCE 1.7 ML/MIN
[2025-09-01] MEDS ORDERED: SODIUM POLYSTYRENE SULFONATE 15 G/4 TSP TSP NGT SCH (12:00)
[2025-09-01] MEDS ORDERED: ANIDULAFUNGIN 100 MG VIAL IV STA (13:10)
[2025-09-02] VITALS (17 sets, daily range): BP systolic 59–111; BP diastolic 24–80; O2SAT 60–79
[2025-09-02] MEDS ORDERED: INSULIN NPH HUMAN ISOPHANE 1,000 UNITS/10 ML UNITS SUBCUTANEO SCH (09:00)
[2025-09-02] MEDS ORDERED: ANIDULAFUNGIN 100 MG VIAL IV SCH (09:00)
[2025-09-02 11:12] LABS: BASO % 0.5 % (0.1-1.2); EOS # 0.00 (0.04-0.54); EOS % 0.0 % (0.7-7.0); LYMPH # 1.56 (1.18-3.74); LYMPH % 3.5 % (19.3-53.1); MEAN PLATELET VOLUME 13.00 fl (9.4-12.4); MONO # 1.75 (0.24-0.82); MONO % 3.9 % (4.7-12.5); NEUT # 36.08 (1.56-6.13); NEUT % 80.6 % (34.0-71.1); RED CELL DISTRIBUTION WIDTH 15.2 % (11.6-14.4)
[2025-09-02] MEDS ORDERED: DOPamine HCL IN DEXTROSE 5 % 250 ML IV SCH (11:15)
[2025-09-02 11:24] LABS: BAND MAN 13.0 %; LYMPHOCYTE MAN 4.0 %; METAMYELOCYTE 5.0 %; MONOCYTE MAN 1.0 %; MYELOCYTE 13.0 %; NEUTROPHILS MAN 64.0 %
[2025-09-02] MEDS ORDERED: FentaNYL CITRATE/PF 1,000 MCG in 0.9 % SODIUM CHLORIDE 100 ML IV SCH (11:30)
[2025-09-02 11:38] LABS: BILIRUBIN TOTAL 1.70 mg/dL (0.3-1.2); CREATININE SERUM 1.49 mg/dL (0.55-1.02); GFR 35.34
[2025-09-02 11:51] LABS: BUN CREA RATIO 43 (7.0-25.0); OSMOLALITY SERUM 299 MOSM/KG (275-295)
[2025-09-02 11:55] LABS: GLUCOSE FASTING 458 mg/dL (65-100)
[2025-09-02 12:12] LABS: ALT/SGPT 113 U/L (12-78); AST/SGOT 212 U/L (15-37)
== END 2025-09-02 16:45 | disposition expired | DRG 207 ==
LOC: ER 00:34 → SEC-K 13:34 → MEDI 13:34 → ICU 08-19 21:53
PROVIDERS: General Practice; Internal Medicine; Internal Medicine Gastroenterology; ADMIT Internal Medicine; ATTEND Internal Medicine
PROC: 4A12X4Z Monitoring of Cardiac Electrical Activity, External Approach (ICD-10-PCS; 2025-08-18)
PROC: BB24YZZ Computerized Tomography (CT Scan) of Bilateral Lungs using Other Contrast (ICD-10-PCS; 2025-08-19)
PROC: 5A1955Z Respiratory Ventilation, Greater than 96 Consecutive Hours (ICD-10-PCS; principal; 2025-08-20)
PROC: 3E0F7GC Introduction of Other Therapeutic Substance into Respiratory Tract, Via Natural or Artificial Opening (ICD-10-PCS; 2025-08-20)
PROC: 02HV33Z Insertion of Infusion Device into Superior Vena Cava, Percutaneous Approach (ICD-10-PCS; 2025-08-20)
PROC: 0BH18EZ Insertion of Endotracheal Airway into Trachea, Via Natural or Artificial Opening Endoscopic (ICD-10-PCS; 2025-08-20)
PROC: 30233N1 Transfusion of Nonautologous Red Blood Cells into Peripheral Vein, Percutaneous Approach (ICD-10-PCS; 2025-08-28)
PROC: B246ZZZ Ultrasonography of Right and Left Heart (ICD-10-PCS; 2025-08-29)
DX: J96.01 Acute respiratory failure with hypoxia (principal); J18.9 Pneumonia, unspecified organism; R65.21 Severe sepsis with septic shock; J44.1 Chronic obstructive pulmonary disease with (acute) exacerbation; J81.1 Chronic pulmonary edema; J84.10 Pulmonary fibrosis, unspecified; F32.9 Major depressive disorder, single episode, unspecified; E11.9 Type 2 diabetes mellitus without complications; I10 Essential (primary) hypertension; J20.9 Acute bronchitis, unspecified; K21.9 Gastro-esophageal reflux disease without esophagitis; Z79.4 Long term (current) use of insulin